=== PATIENT | female | born 1965 | race Caucasian/White ===

== ENCOUNTER 2020-04-29 07:07 | Day surgery (SDC) | payer OTHER, SELFPAY ==
[~2020-04-29] VITALS: Ht 167.6 cm; Wt 122.5 kg
[2020-04-29] MEDS ORDERED: AMLO5TAB PO (08:10)
[2020-04-29] MEDS ORDERED: BUPR-160 PO (08:10)
[2020-04-29] MEDS ORDERED: HYDR-3293 PO (08:10)
[2020-04-29] MEDS ORDERED: ORE25 PO (08:10)
[2020-04-29] MEDS ORDERED: ATOR20TA PO (08:10)
[2020-04-29] MEDS ORDERED: GABA300C PO (08:10)
[2020-04-29] MEDS ORDERED: DULO60EC PO (08:10)
[2020-04-29] MEDS ORDERED: fentaNYL citrate 0.05 MG/ML VIAL ONE (09:40)
[2020-04-29] MEDS ORDERED: LIDOCAINE 2% 100 MG/5 ML UJET TP ONE (09:41)
[2020-04-29] MEDS ORDERED: MIDAZOLAM 2 MG/2 ML VIAL ONE (09:41)
[2020-04-29] MEDS ORDERED: fentaNYL citrate 0.05 MG/ML VIAL IVP ONE (11:15)
[2020-04-29] MEDS ORDERED: EPINEPHrine PFS 0.1 MG/ML SYR IVP ONE (12:48)
== END 2020-04-29 11:30 | disposition home or self-care (01) ==
LOC: MDS 07:07 → MMU 07:09 → MFCC 07:11 → MDS 11:30
PROVIDERS: ATTEND Internal Medicine Gastroenterology
DX: Z12.11 Encounter for screening for malignant neoplasm of colon (principal); K63.5 Polyp of colon; Z80.0 Family history of malignant neoplasm of digestive organs; I10 Essential (primary) hypertension; E78.5 Hyperlipidemia, unspecified; F32.9 Major depressive disorder, single episode, unspecified; M19.90 Unspecified osteoarthritis, unspecified site; Z98.890 Other specified postprocedural states; Z90.10 Acquired absence of unspecified breast and nipple; E66.01 Morbid (severe) obesity due to excess calories; Z68.41 Body mass index [BMI] 40.0-44.9, adult; Z79.899 Other long term (current) drug therapy; Z11.59 Encounter for screening for other viral diseases
CPT/HCPCS: 45380; 45381; 45385; 88305; J0171; J3010; U0003; J2250